=== PATIENT | male | born 1950 | race Caucasian/White ===

== ENCOUNTER 2016-07-31 11:30 | Emergency (ER) | payer BC ==
[2016-07-31] MEDS ORDERED: Sodium Chloride 0.9% 1000 ML 1,000 ML IV STA (11:58)
--- NOTE | 2016-07-31 12:02 | ERPHSYRPT ---
- History of Present Illness Time Seen by Provider: 07/31/16 12:00 Source: patient Exam Limitations: no limitations Patient Subjective Stated Complaint: PT WAS IN [place] WHEN HE BECAME HOT FLUSHED ET [place]-DID NOT LOC-STATES HE FELT WEAK-DENIES ANY PAIN OR SOB Triage Nursing Assessment: PT ARRIVED TO ER PINK WARM ET DRY-A & O X 3-STATES HE IS FEELING BETTER-LUNGS CLEAR-RADIAL PULSE REGULAR ET STRONG-FSBS 150 PER EMS Physician History: 65-year-old male with significant past medical history of diabetes, hypertension. Was attending jehovah's witness today and suddenly had a weak spell. He denies any loss of consciousness. He denies any chest pain, nausea, vomiting. Timing/Duration: today Associated Symptoms: denies symptoms Allergies/Adverse Reactions: Sulfa (Sulfonamide Antibiotics) Allergy (Intermediate, Verified 07/31/16 11:42) Home Medications: Aspirin 81 gm Chew [Baby Aspirin 81 mg Chew] 81 mg PO DAILY 07/31/16 [ History] Exenatide [Byetta] 5 mcg SQ BID 07/31/16 [History] Gabapentin [Neurontin] 300 mg PO TID 07/31/16 [History] Hydrochlorothiazide 25 mg [hydroDIURIL 25 MG] 25 mg PO DAILY 07/31/16 [ History] Metformin HCl [Metformin HCl ER] 1,000 mg PO BID 07/31/16 [History] Olmesartan/Hydrochlorothiazide [Benicar Hct 40-12.5 mg Tablet] 1 each PO DAILY 07/31/16 [History] Hx Tetanus, Diphtheria Vaccination/Date Given: No Hx Influenza Vaccination/Date Given: Yes Hx Pneumococcal Vaccination/Date Given: Yes Immunizations Up to Date: Yes - Review of Systems Constitutional: Weakness, Other (weak spell), No Fever, No Chills Eyes: No Symptoms Ears, Nose, & Throat: No Symptoms, Sinus Drainage Respiratory: No Cough, No Dyspnea Cardiac: No Chest Pain, No Edema, No Syncope Abdominal/Gastrointestinal: No Abdominal Pain, No Nausea, No Vomiting, No Diarrhea Genitourinary Symptoms: No Dysuria Musculoskeletal: No Back Pain, No Neck Pain Skin: No Rash Neurological: No Dizziness, No Focal Weakness, No Sensory Changes Psychological: No Symptoms Endocrine: No Symptoms All Other Systems: Reviewed and Negative - Past Medical History Pertinent Past Medical History: Yes Cardiac History: High Cholesterol, Hypertension Endocrine Medical History: Diabetes Type II - Past Surgical History Past Surgical History: Yes Musculoskeletal: Orthopedic Surgery - Social History Smoking Status: Never smoker Exposure to second hand smoke: No Drug Use: none Patient Lives Alone: No - Nursing Vital Signs Nursing Vital Signs: Initial Vital Signs Temperature 98.1 F Temperature Source Oral Pulse Rate 80 Respiratory Rate 16 Blood Pressure [] 100/53 Pain Intensity 0 - Physical Exam General Appearance: no apparent distress, alert Eye Exam: PERRL/EOMI, eyes nml inspection Ears, Nose, Throat Exam: normal ENT inspection, TMs normal, pharynx normal, moist mucous membranes, other (left sinus tenderness) Neck Exam: normal inspection, non-tender, supple, full range of motion Respiratory Exam: normal breath sounds, lungs clear, No respiratory distress Cardiovascular Exam: regular rate/rhythm, normal heart sounds, normal peripheral pulses Gastrointestinal/Abdomen Exam: soft, normal bowel sounds, No tenderness, No mass Back Exam: normal inspection, normal range of motion, No CVA tenderness, No vertebral tenderness Extremity Exam: normal inspection, normal range of motion, pelvis stable Neurologic Exam: alert, oriented x 3, cooperative, normal mood/affect, nml cerebellar function, nml station & gait, sensation nml, No motor deficits Skin Exam: normal color, warm, dry, No rash Lymphatic Exam: No adenopathy SpO2: 96 Oxygen Delivery: Room Air - Course Nursing assessment & vital signs reviewed: Yes EKG Interpreted by Me: Sinus Rhythm - Radiology Exams Chest X-ray Interpretation: Reviewed by me, Negative Ordered Tests: Active Orders 24 hr Category Date Time Status Section [employer] STAT Care 07/31/16 12:11 Active EKG-ER Only STAT Care 07/31/16 11:58 Active IV Insertion STAT Care 07/31/16 12:11 Active CHEST 1 VIEW (PORTABLE) Stat Exams 07/31/16 11:59 Taken CBC W DIFF Stat Lab 07/31/16 12:09 Completed CMP Stat Lab 07/31/16 12:09 Completed TROPONIN Stat Lab 07/31/16 12:09 Completed Medication Summary Generic Name Dose Route Start Last Admin Trade Name Freq PRN Reason Stop Dose Admin Sodium Chloride 1,000 mls @ 999 mls/hr 07/31/16 11:58 07/31/16 12:16 Sodium Chloride 0.9% 1000 Ml IV 07/31/16 12:58 999 mls/hr .Q1H1M STA Administration Discontinued Medications Generic Name Dose Route Start Last Admin Trade Name Мария PRN Reason Stop Dose Admin Sodium Chloride Confirm 07/31/16 12:13 Sodium Chloride 0.9% 1000 Ml Administered 07/31/16 12:14 Dose 1,000 mls @ ud .ROUTE .K-MED ONE Lab/Rad Data: Laboratory Result Diagrams 07/31/16 12:09 07/31/16 12:09 Laboratory Results 07/31/16 07/31/16 Range/Units 12:09 12:09 WBC 10.5 (4.0-10.5) K/mm3 RBC 4.05 L (4.1-5.6) M/mm3 Hgb 12.4 L (12.5-18.0) gm/dl Hct 37.6 L (42-50) % MCV 92.8 (78-100) fl MCH 30.6 (26-32) pg MCHC 33.0 (32-36) g/dl RDW 13.7 (11.5-14.0) % Plt Count 190 (150-450) K/mm3 MPV 10.6 H (6-9.5) fl Gran % 82.6 H (36.0-66.0) % Lymphocytes % 9.8 L (24.0-44.0) % Monocytes % 7.2 (0.0-12.0) % Eosinophils % 0.2 (0.00-5.0) % Basophils % 0.2 (0.0-0.4) % Basophils # 0.02 (0-0.4) Sodium 139 (136-145) mEq/L Potassium 4.5 (3.5-5.1) mEq/L Chloride 104 (98-107) mEq/L Carbon Dioxide 24.3 (21-32) mEq/L Anion Gap 15.4 H (5-15) MEQ/L BUN 38 H (9-20) mg/dL Creatinine 1.91 H (0.55-1.30) mg/dl Estimated GFR 38 ML/MIN Glucose 113 H (70-110) MG/DL Calcium 8.7 (8.5-10.1) mg/dL Total Bilirubin 0.5 (0.2-1.0) mg/dL AST 12 L (15-37) U/L ALT 16 (12-78) U/L Alkaline Phosphatase 55 (46-116) U/L Troponin I < 0.017 (0.000-0.056) ng/ml Serum Total Protein 7.3 (6.4-8.2) gm/dL Albumin 3.6 (3.4-5.0) g/dL - Progress Progress: improved Counseled pt/family regarding: lab results, diagnosis, need for follow-up, rad results - Departure Time of Disposition: 12:47 Departure Disposition: Home Clinical Impression: Weakness Maxillary sinusitis, acute Qualifiers: Recurrence: non-recurrent Qualified Code(s): J01.00 - Acute maxillary sinusitis , unspecified Type 2 diabetes mellitus Qualifiers: Diabetes mellitus complication status: with kidney complications Diabetes mellitus complication detail: with chronic kidney disease Diabetes mellitus custodial insulin use: without manager intermediate use Chronic kidney disease stage: stage 2 (mild) Qualified Code(s): E11.22 - Type 2 diabetes mellitus with diabetic chronic kidney disease; N18.2 - Chronic kidney disease, stage 2 (mild) Condition: Good Critical Care Time: Yes Critical Care Time(excluding separately billable procedures): 30-74 minutes Referrals: HEATH MAYS, [Primary Care Provider] - Additional Instructions: Please follow the instructions given to you. Please take your medication as prescribed if given. If symptoms recur or get worse, come back to the emergency room if you cannot reach your primary care physician, or call your primary care physician for an appointment. Again if your symptoms get worse, come back to the emergency room. Thanks for visiting emergency room, and let us take care of you. Prescriptions: Azithromycin [Zithromax Tri-Rayo 500 mg] 500 mg PO DAILY #3 tablet
[2016-07-31] MEDS ORDERED: Sodium Chloride 0.9% 1000 ML 1,000 ML ONE (12:13)
[2016-07-31 12:26] LABS: BASOPHIL % 0.2 % (0.0-0.4); Eosinophil % 0.2 % (0.00-5.0); Granulocytes % 82.6 % (36.0-66.0); Lymphocytes % 9.8 % (24.0-44.0); Mean Cell Volume 92.8 fl (78-100); Mean Corpuscular Hemoglobin 30.6 pg (26-32); Mean Platelet Volume 10.6 fl (6-9.5); Monocytes % 7.2 % (0.0-12.0); Platelet Count 190 K/mm3 (150-450); Red Blood Count 4.05 M/mm3 (4.1-5.6); Red Cell Distribution Width 13.7 % (11.5-14.0); White Blood Count 10.5 K/mm3 (4.0-10.5)
[2016-07-31 12:37] LABS: ALBUMIN 3.6 g/dL (3.4-5.0); ALKALINE PHOSPHATASE 55 U/L (46-116); ANION GAP 15.4 MEQ/L (5-15); BILIRUBIN,TOTAL 0.5 mg/dL (0.2-1.0); BLOOD UREA NITROGEN 38 mg/dL (9-20); CHLORIDE 104 mEq/L (98-107); Carbon Dioxide 24.3 mEq/L (21-32); Glucose 113 MG/DL (70-110); Potassium 4.5 mEq/L (3.5-5.1); SGOT/AST 12 U/L (15-37); SGPT/ALT 16 U/L (12-78); SODIUM 139 mEq/L (136-145); Total Protein 7.3 gm/dL (6.4-8.2)
[2016-07-31 12:40] LABS: TROPONIN < 0.017 ng/ml (0.000-0.056)
[2016-07-31 13:43] VITALS: BP 128/69; PULSE 84; O2SAT 97
--- NOTE | 2016-07-31 20:05 | XRAY ---
Indication: Weakness. Comparison: None Portable chest underinflated accentuating the cardiopulmonary structures. No focal infiltrate, consolidation, or large effusion. Bony thorax intact. Impression: Nonacute underinflated chest.
== END 2016-07-31 13:43 | disposition home or self-care (01) ==
LOC: ED 11:30
DX: J01.00 Acute maxillary sinusitis, unspecified (principal); E11.22 Type 2 diabetes mellitus with diabetic chronic kidney disease; N18.2 Chronic kidney disease, stage 2 (mild); R53.1 Weakness; I10 Essential (primary) hypertension; E78.00 Pure hypercholesterolemia, unspecified; Z79.899 Other long term (current) drug therapy; Z79.84 Long term (current) use of oral hypoglycemic drugs; Z79.82 Long term (current) use of aspirin
CPT/HCPCS: 36415; 71010; 80053; 84484; 85025; 93005; 93041; 96360; 99283; 99285